=== PATIENT | female | born 1980 | race Caucasian/White ===

== ENCOUNTER 2020-05-02 09:31 | Emergency (ER) | payer OTHER ==
[~2020-05-02] VITALS: Ht 170.2 cm; Wt 90.0 kg
--- NOTE | 2020-05-02 09:55 | PHYS DOC ---
General Adult EDM: Chief Complaint: CHEST PAIN HPI: HPI: 39-year-old female past medical history of anxiety, PTSD, former tobacco use (quit 3 months ago) and lumbar neuropathy with spinal stimulator, on disability, presents to the ED with (consents to his involvement in hx/medical care) complaints of waking up around 7:30 AM with left-sided chest pain stating " feels like I got punched hard on the chest with split-second electrical shocks," associated nausea, hot flashes, aching jaw and " skin on fire." States she had similar symptoms 2 weeks ago that she attributed to severe anxiety attack. Does report emotional night last night, argument with son who lives in [place] who is accusing her of not loving him because she cannot afford to visit him in [place] (w/his biological father). 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 No known history of Covid. Is not on any antidepressants, Zoloft made her feel like she was on methadone for today. States 1 year ago she suddenly discontinued her Xanax that she had been on for 10 years, 1 mg 3 times daily/reports no withdrawal symptoms. Reports no family history of personal history of connective tissue disorder including Marfan's or Guido-Danlos, AAA, AADor genetic clotting disorder. Grandfather with history of CAD. Her aunt under the age of 50, unknown cause for autopsy. Denies any history of IV drug use, cocaine or methamphetamine abuse. Review of Systems: Review of Systems: Constitutional: Denies fever or chills Eyes: Denies change in visual acuity HENT: Denies nasal congestion or sore throat Respiratory: Denies cough or increased work of breathing Cardiovascular: Denies hemoptysis or syncope GI: Denies abdominal pain, vomiting, bloody stools or diarrhea : Denies dysuria or hematuria Musculoskeletal: Denies back pain or joint pain or lower extremity edema Integument: Denies rash or diaphoresis Neurologic: Denies headache, focal weakness or sensory changes Endocrine: Denies polyuria or polydipsia Lymphatic: Denies swollen glands Psychiatric: Denies depression or anxiety Physical Exam: PE: Constitutional: Well developed, well nourished, no acute distress, non-toxic appearance. HENT: Normocephalic, atraumatic, Eyes: EOMI, conjunctiva normal, no discharge. Neck: Normal range of motion, supple, Cardiovascular: S1/2 present, regular rhythm Lungs & Thorax: Speaking in full sentences, bilateral equal chest rise, no tachypnea or increased work of breathing Abdomen: soft, no tenderness, no Mendez sign, no rigidity or guarding, Skin: Warm, dry, no erythema, no rash. [] Back: No tenderness, no CVA tenderness. [] Extremities: No tenderness, no cyanosis, no lower extremity edema Neurologic: Alert and oriented X 3, normal motor function, normal sensory function, no focal deficits noted. [] Psychologic: Affect normal, judgement normal, mood -very anxious/active panic attack/tearful EKG: EKG: Sinus rhythm 83 bpm, no axis deviation, normal intervals, no T wave inversions, no ST elevations or ST depressions Radiology/Procedures: Radiology/Procedures: IMAGING REPORT Signed PATIENT: MICAH ELLSWORTH LACCOUNT: [id number] : 1980 LOCATION: ER AGE: 39 SEX: F EXAM STATUS: PRE ER ORD. PHYSICIAN: JOLEEN WHYTE DO REASON: CHEST PAIN, HX SMOKER, QUIT X 3 MO AGO, [id number] YRS, ASTHMA PROCEDURE: PORTABLE CHEST 1V Study: XR CHEST 1V Indication: Chest pain. Recent cessation of smoking. Comparison: None. Findings: The cardiomediastinal silhouette is within normal limits for size. No lobar consolidation, layering effusion or pneumothorax. Hazy attenuation at the right infrahilar region with maintained visualization of traversing bronchovascular structures is favored to represent summation artifact such as with epiphrenic fat. The appearance is not typical of focal airspace disease. Impression: No acute radiographic abnormality of the chest. Findings as discussed above at the right infrahilar region are favored summation artifact but a follow-up PA view of the chest could be obtained to confirm stability such as a month. Electronically signed by: EDSON SCHMIDT MD (05/02/2020 10:15 AM) [id number] DICTATED AND SIGNED BY: EDSON SCHMIDT MD DATE: 05/02/20 1012 Heart Score: C/O Chest Pain: Yes HEART Score for Chest Pain: HEART Score for Chest Pain Response (Comments) Value History Slighlty/Non-Suspicious 0 ECG Normal 0 Age < 45 0 Risk Factors >3 Risk Factors or Hx CAD 2 Troponin < Normal Limit 0 Total 2 Risk Factors: Risk Factors: DM, Current or recent (<one month) smoker, HTN, HLP, family history of CAD, obesity. Risk Scores: Score 0 - 3: 2.5% MACE over next 6 weeks - Discharge Home Score 4 - 6: 20.3% MACE over next 6 weeks - Admit for Clinical Observation Score 7 - 10: 72.7% MACE over next 6 weeks - Early Invasive Strategies Course & Med Decision Making: Course & Med Decision Making Pertinent Labs and Imaging studies reviewed. (See chart for details) Concern for atypical chest pain with associated nausea in the setting of active panic disorder and panic attacks -improved with IV Ativan. No active vomiting (has a prescription for medical marijuana). D-dimer within normal limits. Labs with unconjugated hyperbilirubinemia but no right upper quadrant pain or Mendez sign. Contaminated urinalysis with no nitrates or leukocyte esterase. I s uspect symptoms are more related to her anxiety and panic disorder-we will refer to outpatient psychiatry and prescribed Atarax. We will also prescribe Zofran ODT and educated patient this will not improve nausea and vomiting related to cannabinoid use. Will discharge home with strict ED return precautions were given for tractable nausea vomiting, severe abdominal pain, chest pressure, dyspnea, neurologic deficits or syncope. Encouraged urgent outpatient follow-up with PMD and psychiatry for anxiety and panic attacks, cardiology for nonemergent outpatient work-up. Life-threatening processes were considered but are low suspicion at this time, given history, physical exam and ED workup. Pt was educated on all prescription medications and adverse effects. All patient's questions were answered and pt was stable at time of discharge. Life/limb-threatening differential includes but is not limited to, acute myocardial infarction, aortic dissection, congestive heart failure, esophageal injury including rupture, surgical abdomen, arrhythmia, cardiomyopathy, myocarditis, pericarditis, peptic ulcer disease, pneumomediastinum, pneumonia, pneumothorax, pulmonary embolus, unstable angina, rib fracture, contusion, pericardial tamponade or effusion, traumatic injury including mediastinal hemorrhage or hematoma, suicidal homicidal ideations, hallucinations, inability to care for herself or others, or pulmonary contusion. I spoken with the patient and her caregivers. I explained the patient's condition, diagnoses and treatment plan based on the information available to me at this time. I have answered the patient and her caregiver's questions and addressed any concerns. The patient and her caregivers have a good understanding of patient's diagnosis, condition and treatment plan as can be expected at this point. Vital signs have been stable. Patient's condition is stable and appropriate for discharge from the emergency department. Patient will pursue further outpatient evaluation with primary care physician or other designated or consulting physician as outlined in the discharge instructions. The patient and/or caregivers are agreeable to this plan of care and follow-up instructions have been explained in detail. The patient and/or caregivers have received these instructions in written form and have expressed an understanding of the discharge instructions. The patient and/or caregivers are aware that any significant change of condition or worsening of symptoms should prompt immediate return to this or the closest emergency department or call to 1. Matilde Disclaimer: Matilde Disclaimer: This electronic medical record was generated, in whole or in part, using a voice recognition dictation system. Departure Departure: Impression: Primary Impression: Atypical chest pain Additional Impression: Panic attack Disposition: 01 DC HOME SELF CARE/HOMELESS Condition: STABLE Referrals: PCP,UNKNOWN (PCP) FOLLOW UP WITH FAMILY MEDICINE: Family Medicine Address: [address] [facility] [address] [place] [address] Patient Instructions: Anxiety and Panic Attacks, Chest Pain (Nonspecific) Additional Instructions: FOLLOW UP WITH PSYCHIATRY: For chronic management of anxiety Dr. Mateo Stanford Psychiatry Specialist [address] [place], [place] [address] FOLLOW UP WITH CARDIOLOGY: For nonemergent cardiology evaluation [facility] Address: [address] [address] EMERGENCY DEPARTMENT GENERAL DISCHARGE INSTRUCTIONS Thank you for coming to [facility] (ED) today and trusting us with you care. We trust that you had a positivie experience in our Emergency Department. If you wish to speak to the department management, you may call the director at [phone]. YOUR FOLLOW UP INSTRUCTIONS ARE FOLLOWS: 1. Do you have a private Doctor? If you do not have a private doctor, please ask for a resource list of physicians or clinics that may be able to assist you with follow up care. 2. The Emergency Physician has interpreted your x-rays. The X-Ray specialist will also review them. If there is a change in the findings, you will be notified in 48 hours when at all possible. 3. A lab test or culture has been done, your results will be reviewed and you will be notified if you need a change in treatment. ADDITIONAL INSTRUCTIONS AND INFORMATION: 1. Your care today has been supervised by a physician who is specially trained in emergency care. Many problems require more than one evaluation for a complete diagnosis and treatment. We recommend that you schedule your follow up appointment as recommended to ensure complete treatment of you illness or injury. If you are unable to obtain follow up care and continue to have a problem, or if your condition worsens, we recommend that you return to the ED. 2. We are not able to safely determine your condition over the phone nor are we able to give sound medical advice over the phone. For these safety reasons, if you call for medical advice we will ask you to come to the ED for further evaluation. 3. If you have any questions regarding these discharge instructions please call the ED at [phone]. SAFETY INFORMATION: In the interest of safety, wellness, and injury prevention; we encourage you to wear your sealbelt, if you smoke; quite smoking, and we encourage family to use a protective helmet for bicycling and other sporting events that present an increased risk for head injury. IF YOUR SYMPTOMS WORSEN OR NEW SYMPTOMS DEVELOP, OR YOU HAVE CONCERNS ABOUT YOUR CONDITION; OR IF YOUR CONDITION WORSENS WHILE YOU ARE WAITING FOR YOUR FOLLOW UP APPOINTMENT; EITHER CONTACT YOUR PRIMARY CARE DOCTOR, THE PHYSICIAN WHOSE NAME AND NUMBER YOU WERE GIVEN, OR RETURN TO THE ED IMMEDIATELY. Scripts Hydroxyzine Hcl (HYDROXYZINE HCL) 25 Mg Tablet 1 TAB PO PRN BID PRN for ANXIETY / AGITATION, #20 TAB 0 Refills Be careful as this medication may make you mildly tired. I recommend not driving on this medication or operating heavy machinery. Prov: JOLEEN WHYTE DO 05/02/20 Ondansetron (ONDANSETRON ODT) 4 Mg Tab.rapdis 4 MG PO Q6HRS for Nausea/Vomiting, #15 TAB Prov: JOLEEN WHYTE DO 05/02/20 JOLEEN WYHTE DO May 02, 2020 09:55
[2020-05-02 10:00] LABS: BASO # 0.1 x10^3/uL (0.0-0.2); BASO % 1 % (0-3); EOS # 0.3 x10^3/uL (0.0-0.7); EOS % 4 % (0-3); HEMATOCRIT 42.4 % (36.0-47.0); HEMOGLOBIN 14.2 g/dL (12.0-15.5); LYMPH # 1.8 x10^3/uL (1.0-4.8); LYMPH % 27 % (24-48); MEAN CORPUSCULAR HEMOGLOBIN 31 pg (25-35); MEAN CORPUSCULAR HGB CONC 33 g/dL (31-37); MEAN CORPUSCULAR VOLUME 92 fL (79-100); MONO # 0.4 x10^3/uL (0.0-1.1); MONO % 6 % (0-9); NEUT # 4.2 x10^3uL (1.8-7.7); NEUT % 62 % (31-73); PLATELET COUNT 299 x10^3/uL (140-400); RED CELL DISTRIBUTION WIDTH 13.6 % (11.5-14.5); WHITE BLOOD COUNT 6.7 x10^3/uL (4.0-11.0)
[2020-05-02 10:14] LABS: CALCIUM 9.1 mg/dL (8.5-10.1); CREATININE 0.8 mg/dL (0.6-1.0); GFR 80.7; POTASSIUM 4.1 mmol/L (3.5-5.1)
[2020-05-02] MEDS ORDERED: IV NORMAL SALINE 1,000ML 1,000 ML IV ONE (10:15)
--- NOTE | 2020-05-02 10:18 | RAD ---
Study: XR CHEST 1V Indication: Chest pain. Recent cessation of smoking. Comparison: None. Findings: The cardiomediastinal silhouette is within normal limits for size. No lobar consolidation, layering e ffusion or pneumothorax. Hazy attenuation at the right infrahilar region with maintained visualization of traversing bronchova scular structures is favored to represent summation artifact such as with epiphrenic fat. The appeara nce is not typical of focal airspace disease. Impression: No acute radiographic abnormality of the chest. Findings as discussed above at the right infrahilar r egion are favored summation artifact but a follow-up PA view of the chest could be obtained to confir m stability such as a month. Electronically signed by: EDSON SCHMIDT MD (05/02/2020 10:15 AM) [id number]
[2020-05-02 10:27] LABS: ALBUMIN 4.2 g/dL (3.4-5.0); DIRECT BILIRUBIN 0.3 mg/dL (0.0-0.2); TOTAL BILIRUBIN 1.5 mg/dL (0.2-1.0); TOTAL PROTEIN 7.5 g/dL (6.4-8.2)
--- NOTE | 2020-05-02 10:37 | EKG ---
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
[2020-05-02] MEDS ORDERED: ONDANSETRON PF 4 MG/2 ML VIAL. IVP ONE (11:00)
[2020-05-02] MEDS ORDERED: KETOROLAC 30 MG/ML VIAL. IVP ONE (12:00)
[2020-05-02 12:31] LABS: BILIRUBIN,URINE NEG (NEG); CLARITY,URINE CLOUDY; COLOR,URINE AMBER; GLUCOSE,URINE NEG (NEG); NITRITE,URINE NEG (NEG); RBC,URINE RARE /HPF (0-2); UROBILINOGEN,URINE 0.2 mg/dL (0.2 mg/dL); WBC,URINE RARE /HPF (0-4)
[2020-05-02 12:32] LABS: BACTERIA,URINE MANY /HPF (0-FEW); SQUAMOUS EPITHELIAL CELL,UR MANY /LPF
[2020-05-02 12:38] LABS: BARBITURATES NEG (NEG); BENZODIAZEPINES NEG (NEG); CANNABINOIDS POS (NEG); COCAINE NEG (NEG); METHADONE NEG (NEG); OPIATES NEG (NEG); PHENCYCLIDINE NEG (NEG)
[2020-05-02 12:43] LABS: AMPHETAMINE/METHAMPHETAMINE NEG (NEG)
[2020-05-02 13:46] LABS: U PREG PATIENT NEGATIVE (NEG)
[2020-05-02] MEDS ORDERED: KETOROLAC 15 MG/ML VIAL. IVP ONE (14:00)
[2020-05-02] MEDS ORDERED: HYDR25TA PO (14:54)
[2020-05-02] MEDS ORDERED: ONDA4TAB12 PO (14:54)
[2020-05-02 15:02] VITALS: BP 111/72
== END 2020-05-02 15:06 | disposition home or self-care (01) ==
LOC: ER 09:31
DX: R07.89 Other chest pain (principal); R11.0 Nausea; F41.9 Anxiety disorder, unspecified; F43.12 Post-traumatic stress disorder, chronic
CPT/HCPCS: 36415; 71045; 80048; 80076; 80307; 81001; 81025; 82550; 83690; 83880; 84484; 85025; 85379; 87086; 93005; 96361; 96374; 96375; 96376; 99285; J1885; J2060; J2405; J7030